=== PATIENT | male | born 1980 | race Caucasian/White ===

== ENCOUNTER 2017-09-21 08:59 | Day surgery (SDC) | payer BC ==
[2017-09-20 10:42] VITALS: BMI 27.3
[2017-09-21] MEDS ORDERED: CEFAZOLIN/Water 2 GM/20 ML SYRINGE ONE (09:53)
[2017-09-21] MEDS ORDERED: Fentanyl 100 MCG/2 ML VIAL ONE (10:18)
[2017-09-21] MEDS ORDERED: Midazolam HCl 2 mg/2 ml Vial ONE (10:18)
[2017-09-21] MEDS ORDERED: Bacitracin Zinc Ointment 30 gm TUBE ONE (10:23)
[2017-09-21] MEDS ORDERED: Bupivacaine/Epinephrine 0.25% 30 ML VIAL ONE (10:23)
[2017-09-21] MEDS ORDERED: Ophthalmic Irrigation Solution 15 ML ONE (10:23)
[2017-09-21] MEDS ORDERED: Lidocaine 1% PF 5 ML VIAL ONE (14:17)
[2017-09-21] MEDS ORDERED: PROPOFOL 200 MG/20 ML VIAL ONE (14:17)
[2017-09-21] MEDS ORDERED: Ondansetron HCl/PF 4 MG/2 ML Vial ONE (14:17)
--- NOTE | 2017-09-21 23:29 | OP ---
PREOPERATIVE DIAGNOSIS: Basal cell carcinoma of the nose (C44.311). POSTOPERATIVE DIAGNOSIS: Basal cell carcinoma of the nose (C44.311). PROCEDURES: 1. Wide excision basal cell carcinoma of the nose (3.1 cm including adequate margins). 2. Full-thickness skin graft of the nose (5 cm2) (53263). PROCEDURE IN DETAIL: Following induction of adequate anesthesia, the patient was prepped and draped in the usual sterile fashion in the supine position. The patient's basal cell carcinoma was widely e xcised including adequate margins. Excision was performed until margins came back by frozen section analysis clear. Patient elected for a full-thickness skin graft reconstruction. I had advised him that while this wo uld not be of the aesthetic ideal would facilitate surveillance. It can also be reversed by doing a forehead flap reconstruction later. I do expect complete nasal collapse of his affected left side. A full-thickness skin graft was harvested from his ipsilateral supraclavicular region and thinned jen ropriately. It was quilted into place with 5-0 chromic suture and then secured with a bolster dressi ng. The patient tolerated the procedure well.
== END 2017-09-21 15:33 | disposition home or self-care (01) ==
LOC: SDC 08:59
PROVIDERS: ATTEND Plastic Surgery
PROC: 0HR1X73 Replacement of Face Skin with Autologous Tissue Substitute, Full Thickness, External Approach (ICD-10-PCS; principal; 2017-09-21)
PROC: 0HB5XZZ Excision of Chest Skin, External Approach (ICD-10-PCS; principal; 2017-09-21)
DX: C44.311 Basal cell carcinoma of skin of nose (principal); F17.210 Nicotine dependence, cigarettes, uncomplicated; Z79.899 Other long term (current) drug therapy
CPT/HCPCS: 88305; 88331; 88332; J2001; J2250; J2405; J2704; J3010